=== PATIENT | female | born 1975 | race Caucasian/White ===

== ENCOUNTER 2017-11-19 15:56 | Emergency (ER) | payer BC ==
[~2017-11-19] VITALS: Ht 172.7 cm; Wt 90.5 kg
[2017-11-19 15:58] VITALS: TEMP 99.1
[2017-11-19] MEDS ORDERED: SYNTHROID0.05 MG/TA PO (16:11)
[2017-11-19] MEDS ORDERED: HCTZ12.5TAB PO (16:13)
[2017-11-19] MEDS ORDERED: FLONASE NASAL S16 GM NS (16:14)
[2017-11-19 16:26] LABS: COLLECTION METHOD CLEAN CATCH
[2017-11-19 16:31] LABS: PH 7 (5-8); SQUAMOUS EPITHELIAL 0-2 /hpf; URINE APPEARANCE Clear; URINE BACTERIA None Seen /hpf; URINE BILIRUBIN Negative (NEGATIVE); URINE BLOOD Negative (NEGATIVE); URINE COLOR Straw; URINE GLUCOSE Negative (NEGATIVE); URINE KETONE 1+ (NEGATIVE); URINE LEUKOCYTE ESTERASE Negative (NEGATIVE); URINE NITRATE Negative (NEGATIVE); URINE PROTEIN(semi-quant) Negative (NEGATIVE); URINE RBC 0-2 /hpf; URINE UROBILINOGEN Negative (NEGATIVE)
[2017-11-19 16:40] LABS: BASO # 0.1 (0.0-0.2); BASO % 0.8 % (0.0-2.0); EOS # 0.1 (0.0-0.7); EOS % 0.6 % (0-4.0); GRAN # 6.2 (1.4-6.5); GRAN % 72.4 % (42.2-75.2); HEMATOCRIT 40.6 % (37.0-47.0); HEMOGLOBIN 14.3 g/dl (12.5-16.0); LYMPH # 1.7 (1.2-3.4); LYMPH % 19.4 % (20.0-51.0); MEAN CELL VOLUME 88 fl (80.0-100.0); MEAN CORPUSCULAR HEMOGLOBIN 31 pg (27.0-31.0); MEAN CORPUSCULAR HGB CONC 35 g/dl (33.0-37.0); MEAN PLATELET VOLUME 9.7 fl (7.4-10.4); MONO # 0.6 (0.1-0.6); MONO % 6.6 % (1.7-9.3); PLATELET COUNT 327 K/mm3 (130-400); RED BLOOD COUNT 4.62 M/mm3 (4.10-5.30); REDCELL DISTRIBUTION WIDTH-CV 11.5 % (11.5-14.5)
[2017-11-19 16:54] LABS: ALBUMIN 4.4 gm/dL (3.5-5.0); BILIRUBIN,TOTAL 0.4 mg/dL (0.0-1.0); C-REACTIVE PROTEIN 1.1 mg/dL (0.0-0.9); CALCIUM 9.2 mg/dL (8.4-10.2); CREATININE, serum 0.67 mg/dL (0.52-1.25); POTASSIUM 3.6 mmol/L (3.4-5.0); TOTAL PROTEIN 7.4 gm/dL (6.4-8.2)
[2017-11-19] MEDS ORDERED: PRINIVIL10 MG PO (17:14)
[2017-11-19 17:25] VITALS: BP 130/97; PULSE 78
== END 2017-11-19 17:23 | disposition home or self-care (01) ==
LOC: COL.ER 15:56
PROVIDERS: Family Medicine
DX: I10 Essential (primary) hypertension (principal); Z79.51 Long term (current) use of inhaled steroids

== ENCOUNTER → 2017-12-11 | Outpatient (CLI) | payer BC ==
[~2017-12-11] MED LIST: FLONASE NASAL S16 GM NS; HCTZ12.5TAB PO; PRINIVIL10 MG PO; SYNTHROID0.05 MG/TA PO
== END ==
LOC: COL.RAD 10:30
DX: R26.89 Other abnormalities of gait and mobility (principal)

== ENCOUNTER 2018-03-13 06:21 | Day surgery (SDC) | payer BC ==
[~2018-03-13] VITALS: Ht 172.7 cm; Wt 89.6 kg
[2018-03-13] MEDS ORDERED: OMEGA-3 1000 MG1 CAP PO (06:47)
[2018-03-13] MEDS ORDERED: ADVIL200 MG PO (06:47)
[2018-03-13] MEDS ORDERED: FOLIC ACID0.4 MG PO (06:48)
[2018-03-13] MEDS ORDERED: VITAMIN B-12 PO (06:48)
[2018-03-13 06:51] VITALS: BP 140/99; PULSE 97; TEMP 97.7
[2018-03-13 08:23] VITALS: BP 128/88; PULSE 80; TEMP 97.5
--- NOTE | 2018-03-13 08:23 | NUR ---
Pt to GI bay 5 via cart from ENDO. Pt awake and alert. Pt denies pain or nausea. Pt ambulates to recliner with stand by assistance. Juice and muffin provided. Will continue to monitor. Call light within reach.
[2018-03-13 08:38] VITALS: BP 114/77; PULSE 70
--- NOTE | 2018-03-13 08:38 | NUR ---
Pt continues to rest. Tolerating food and fluids without difficulties. Denies needs. Call light within rech.
[2018-03-13 08:53] VITALS: BP 124/87; PULSE 71
--- NOTE | 2018-03-13 08:53 | NUR ---
Pt continues to rest. Denies needs. Call light within reach.
[2018-03-13 09:08] VITALS: BP 108/71; PULSE 63
--- NOTE | 2018-03-13 09:08 | NUR ---
Pt continues to rest. Denies needs. Call light within rech.
--- NOTE | 2018-03-13 09:30 | NUR ---
Discharge instructions reviewed. Pt voices understanding. IV site discontinued with all parts intact. Pt up to dress. Call light within reach.
--- NOTE | 2018-03-13 09:43 | NUR ---
Pt escorted to private car via wheel chair. Pt accompanied home by her mother.
== END 2018-03-13 09:43 | disposition home or self-care (01) ==
LOC: SDCO 06:21
DX: K63.5 Polyp of colon (principal); K64.1 Second degree hemorrhoids; K64.4 Residual hemorrhoidal skin tags; K92.1 Melena; K59.00 Constipation, unspecified; E03.9 Hypothyroidism, unspecified; Z88.6 Allergy status to analgesic agent
CPT/HCPCS: J2250; J3010; J7030

== ENCOUNTER → 2018-08-17 | Outpatient (CLI) | payer BC ==
[~2018-08-17] MED LIST changes: +ADVIL200 MG PO; +FOLIC ACID0.4 MG PO; +OMEGA-3 1000 MG1 CAP PO; +VITAMIN B-12 PO
== END ==
LOC: MC.RAD 06-16 11:15
DX: Z12.31 Encounter for screening mammogram for malignant neoplasm of breast (principal)

== ENCOUNTER 2020-03-27 18:10 | Observation (INO) | payer BC ==
[2020-03-27] VITALS (7 sets, daily range): BP systolic 109–132; BP diastolic 75–89; PULSE 84–96; TEMP 97.8
--- NOTE | 2020-03-27 18:30 | NUR ---
Patient to room 343 by wheelchair from ED admissions. A&Ox4. IV site LF F, CDI. Nurse in the room talking with the patient. Consent signed. Patient taken by bed to OR. No further needs expressed from the patient.
--- NOTE | 2020-03-27 21:00 | NUR ---
PATIENT UP FROM PACU. 3 LAP SITES ON HER ABDOMEN WITH BANDAIDS. CLEAN, DRY, AND INTACT. PATIENT HAS NO COMPLAINTS OF PAIN OR NAUSEA. TOLERATING ICE CHIPS. SET UP ON POST OP VITALS.
--- NOTE | 2020-03-27 22:30 | NUR ---
PATIENT GOT UP TO USE THE BATHROOM. PATIENT HAD NO DIZZINESS AND A STEADY GAIT.
[2020-03-28 00:15] VITALS: BP 121/71; PULSE 88; TEMP 98.8
[2020-03-28 00:57] VITALS: BP 121/71; PULSE 88; TEMP 98.8
[2020-03-28 03:48] VITALS: BP 119/67; PULSE 80; TEMP 101.2
[2020-03-28 03:56] VITALS: BP 119/69; PULSE 86; TEMP 98
[2020-03-28 05:00] VITALS: TEMP 98.3
--- NOTE | 2020-03-28 05:00 | NUR ---
RECHECKED PATIENT'S TEMPERATURE. PATIENT'S TEMP IS NOW 98.3.
[2020-03-28 08:08] VITALS: BP 126/74; PULSE 73; TEMP 98
--- NOTE | 2020-03-28 08:49 | NUR ---
Initial visit; Patient thanked Pl[employer] Operator for looking in on her and offering God's blessings.
--- NOTE | 2020-03-28 09:11 | NUR ---
Patient alert and oriented, answers questions appropriately. See assessment. Abdomen soft, non tender, non distended. Bowel sounds active x4 quads. +Flatus. No bowel movement. Abdominal incisions with edges well approximated, no redness or drainage noted. Post op exercises reviewed. No c/o at this time.
--- NOTE | 2020-03-28 10:09 | NUR ---
Discharge instructions reviewed with patient, verbalized understanding. Discharged ambulatory to auto/home with family at 0915.
== END 2020-03-28 09:15 | disposition home or self-care (01) ==
LOC: SURG 18:10
PROVIDERS: ADMIT Surgery
DX: K35.80 Unspecified acute appendicitis (principal); Z88.1 Allergy status to other antibiotic agents; Z88.8 Allergy status to other drugs, medicaments and biological substances; I10 Essential (primary) hypertension; G89.29 Other chronic pain; M54.5 Low back pain
CPT/HCPCS: J0330; J0690; J1100; J1885; J2405; J2704; J3010; J7120

== ENCOUNTER → 2020-03-27 | Outpatient (CLI) | payer BC | LOC: COL.RAD 10:10 | DX: K37 Unspecified appendicitis (principal) | CPT/HCPCS: Q9967 ==

== ENCOUNTER → 2021-04-10 | Outpatient (CLI) | payer BC | LOC: MC.RAD 07:45 | DX: Z12.31 Encounter for screening mammogram for malignant neoplasm of breast (principal) ==

== ENCOUNTER → 2021-04-12 | Outpatient (CLI) | payer BC | LOC: MC.RAD 07:41 | DX: N63.10 Unspecified lump in the right breast, unspecified quadrant (principal) ==

== ENCOUNTER → 2021-05-15 | Outpatient (CLI) | payer BC | LOC: MC.RAD 05-01 08:00 | DX: N63.10 Unspecified lump in the right breast, unspecified quadrant (principal) ==

== ENCOUNTER → 2023-10-28 | Outpatient (CLI) | payer BC | LOC: MC.RAD 07:49 | DX: Z12.31 Encounter for screening mammogram for malignant neoplasm of breast (principal) ==